=== PATIENT | female | born 1970 | race Caucasian/White ===

== ENCOUNTER → 2020-06-14 08:33 | Outpatient (BNVA) | payer OTHER, SELFPAY | PROVIDERS: Visit Provider Physician Assistant | DX: Z76.89 Persons encountering health services in other specified circumstances (principal) ==

== ENCOUNTER → 2020-06-15 13:05 | Outpatient (BNVA) | payer OTHER, SELFPAY | PROVIDERS: Visit Provider Physician Assistant | DX: Z76.89 Persons encountering health services in other specified circumstances (principal) ==

== ENCOUNTER 2020-08-13 13:12 | Outpatient (REF) | payer OTHER, SELFPAY | END 2020-08-13 13:13 | disposition home or self-care (01) | LOC: HO.LAB 13:12 | PROVIDERS: Visit Provider Internal Medicine | DX: Z20.828 Contact with and (suspected) exposure to other viral communicable diseases (principal) | CPT/HCPCS: C9803; U0003 ==

== ENCOUNTER → 2020-09-09 08:07 | Outpatient (BNVA) | payer OTHER, SELFPAY | PROVIDERS: PCP Internal Medicine; Visit Provider Physician Assistant | DX: Z76.89 Persons encountering health services in other specified circumstances (principal) ==

== ENCOUNTER → 2020-11-26 08:06 | Outpatient (BNVA) | payer OTHER, SELFPAY | PROVIDERS: PCP Internal Medicine; Visit Provider Physician Assistant ==

== ENCOUNTER → 2021-03-02 08:16 | Outpatient (BNVA) | payer OTHER, SELFPAY | PROVIDERS: PCP Internal Medicine; Visit Provider Physician Assistant ==

== ENCOUNTER 2021-03-23 08:24 | Outpatient (REF) | payer OTHER, SELFPAY ==
[2021-03-23 09:13] LABS: Estimated Average Glucose 97 mg/dL
[2021-03-23 09:26] LABS: C Reactive Protein 0.14 mg/dL (< or = 0.50); Cholesterol 171 mg/dL; HDL Cholesterol 70 mg/dL; LDL Cholesterol Calculated 82 mg/dl; Triglycerides 96 mg/dL
[2021-03-23 09:47] LABS: TSH reflex Free T4 1.08 uIU/mL (0.32-4.0); Vitamin D 25-OH Total 31.6 ng/mL (>30)
[2021-03-23 10:15] LABS: Folate 17.6 ng/mL (> or = 4.0); Vitamin B12 451 pg/mL (200-900)
[2021-03-25 12:27] LABS: PTHI 37 pg/mL (14-64)
[2021-03-28 12:50] LABS: Insulin Level Total 3.4 uIU/mL
[2021-03-29 17:31] LABS: Vitamin A 54 mcg/dL (38-98)
[2021-04-03 11:17] LABS: Vitamin B1 13 nmol/L (8-30)
== END 2021-03-23 08:25 | disposition home or self-care (01) ==
LOC: HO.LAB 08:24
PROVIDERS: PCP Internal Medicine; Visit Provider Physician Assistant
DX: K90.9 Intestinal malabsorption, unspecified (principal); Z98.84 Bariatric surgery status
CPT/HCPCS: 36415; 80061; 82306; 82607; 82746; 83036; 83525; 83970; 84425; 84443; 84590; 86140

== ENCOUNTER → 2021-05-30 08:01 | Outpatient (BNVA) | payer OTHER, SELFPAY | PROVIDERS: PCP Internal Medicine; Visit Provider Physician Assistant Surgical ==

== ENCOUNTER → 2021-06-30 08:05 | Outpatient (BNVA) | payer OTHER, SELFPAY | PROVIDERS: PCP Internal Medicine; Visit Provider Physician Assistant Surgical ==